=== PATIENT | female | born 1950 | race Caucasian/White ===

== ENCOUNTER 2017-02-10 21:54 | Inpatient (IN) | payer OTHER, MEDICARE ==
[~2017-02-10] VITALS: Ht 165.1 cm; Wt 85.2 kg
[2017-02-10 22:06] VITALS: BP 107/50; PULSE 82; RESP 16; TEMP 98.1; O2SAT 97
[2017-02-10] MEDS ORDERED: MORPHINE SULFATE 4 MG/ML INJ IV PUSH ONE (22:30)
--- NOTE | 2017-02-10 22:41 | PD ---
HPI Chief Complaint: Hip Injury Time Seen by Provider: 22:07 Travel History International Travel<30 days: No Contact w/Intl Traveler<30days: No Traveled to known affect area: No History of Present Illness HPI 66-year-old female was getting out of her wheelchair today when she suddenly felt a pop in her left hip and since then has been unable to stand up. She has been in excruciating pain with leg length discrepancy. She was brought in by EMS. Patient lives in a rehabilitation and had her left hip replacement revised one month ago. She has dislocated this hip in the past. She received morphine on route by EMS. She is still in significant distress. [facility] Past Medical History Narrative Medical List of her past medical, surgical, social and family history is reviewed from the nursing note. Arthritis: Yes (OSTEO) Diminished Hearing: No Thyroid Disease: Yes Tetanus Vaccination: Unknown Influenza Vaccination: No Social History Alcohol Use: No Tobacco Use: No Substance Use: No Allergies-Medications (Allergen,Severity, Reaction): Coded Allergies: No Known Allergies (Unverified , 02/10/17) Comments No known drug allergies. Reported Meds & Prescriptions Reported Meds & Active Scripts Active Reported Levothyroxine (Levothyroxine Sodium) 75 Mcg Tab 75 Mcg PO DAILY Narrative Medication Awaiting for the nurse to put the med reconciliation. Review of Systems Except as stated in HPI: all other systems reviewed are Neg Physical Exam Narrative GENERAL: Awake, alert, anxious, moderate distress SKIN: Focused skin assessment warm/dry. HEAD: Atraumatic. Normocephalic. EYES: Pupils equal and round. No scleral icterus. No injection or drainage. ENT: No nasal bleeding or discharge. Mucous membranes pink and moist. NECK: Trachea midline. No JVD. CARDIOVASCULAR: Regular rate and rhythm. No murmur appreciated. RESPIRATORY: No accessory muscle use. Clear to auscultation. Breath sounds equal bilaterally. GASTROINTESTINAL: Abdomen soft, non-tender, nondistended. Hepatic and splenic margins not palpable. MUSCULOSKELETAL: Left leg internally rotated and shortened. No clubbing. No cyanosis. No edema. NEUROLOGICAL: Awake and alert. No obvious cranial nerve deficits. Motor grossly within normal limits. Normal speech. PSYCHIATRIC: Appropriate mood and affect; insight and judgment normal. Data Data Last Documented VS Vital Signs Date Time Temp Pulse Resp B/P (MAP) Pulse Ox O2 Delivery O2 Flow Rate FiO2 02/10/17 23:40 74 16 113/55 (74) 100 Room Air 02/10/17 22:06 98.1 Orders Orders Morphine Inj (Morphine Inj) (02/10/17 22:30) Hip, Ap Only W Ap Pelvis (02/10/17 ) Propofol 200 Mg/20 Ml Inj (Diprivan 200 (02/10/17 23:00) Femur (Ap & Lat/2vws) (02/10/17 ) MDM Medical Decision Making Medical Screen Exam Complete: Yes Emergency Medical Condition: Yes Medical Record Reviewed: Yes Differential Diagnosis Hip dislocation, hip fracture Narrative Course 10:41 PM awaiting for the x-ray to be done and resulted. Patient was medicated for pain 11:39 PM x-ray was suggestive of dislocation. I tried to reduce the hip under procedural sedation. Please refer to my procedure note. The reduction was unsuccessful. I just discussed the case with Dr. Boone from orthopedics and she wants the patient admitted under medical service and nothing by mouth. She' ll try to do a closed reduction and if unsuccessful we will do an open reduction. I've explained all this to the patient's and family. I've answered all the questions to the best of my ability. Procedures Procedure Narrative After the risks and benefits were discussed the following procedure was performed: MODERATE SEDATION: The patient was placed on a cardiac/vascular sonographer and pulse oximetry. An ambu bag and suction was immediately available at bedside. The patient was monitored by the nurse. Oxygen saturation , heart rate and blood pressure were monitored. Procedural sedation was acheived using IV propofol 240 mg. The patient was observed until awake and alert. Procedural Sedation time in attendance was 25 minutes. Left hip reduction: This was tried to be reduced under sedation by thi Coe's method. In spite of multiple attempts under adequate sedation this was unsuccessful. EKG Prior to Arrival: No Physician Communication Physician Communication Dr. Boone Diagnosis Primary Impression: Hip dislocation, left Qualified Codes: S73.005A - Unspecified dislocation of left hip, initial encounter Additional Impression: unsuccessful reduction Admitting Information Admitting Physician Requests: Observation Alberto Evans MD Feb 10, 2017 22:41
[2017-02-10] MEDS ORDERED: PROPOFOL 200 MG/20 ML AMP IV ONE (23:00)
--- NOTE | 2017-02-10 23:07 | RADRPT ---
EXAM DATE/TIME: 02/10/2017 22:24 [facility] COMPARISON: No previous studies available for comparison. INDICATIONS : Left hip pain. MEDICAL HISTORY : Previous left hip fracture SURGICAL HISTORY : Left total hip replacement ENCOUNTER: Initial ACUITY: 1 day PAIN SCORE: 10/10 LOCATION: Left pelvis FINDINGS: AP view of the left hip was obtained as well as an AP view of the pelvis. The patient is status post left hip arthroplasty and apparent revision with longstem type device and multiple cerclage wires juana rounding the proximal femur. There is dislocation of the femoral component superiorly and lateral to the acetabular component approximately 2-3 cm. There is no definite acute fracture. There is mild ost eopenia. Pubic rami are intact. There is a stimulator device projected over the left side of the sacr um. CONCLUSION: 1. Dislocation of the hip prosthesis with no definite fracture. 2. Osteopenia and stimulator device in place. James An MD on February 10, 2017 at 23:03 Board Certified Radiologist. This report was verified electronically.
[2017-02-10 23:11] VITALS: O2SAT 98
[2017-02-10 23:40] VITALS: BP 113/55; PULSE 74; RESP 16; O2SAT 100
[2017-02-10] MEDS ORDERED: LEVO75TA3 PO (23:41)
[2017-02-10] MEDS ORDERED: NALOXONE HCL 0.4 MG/ML AMP IV PUSH PRN (23:45)
[2017-02-10] MEDS ORDERED: SODIUM CHLORIDE 0.9% FLUSH 10 ML FLUSH IV FLUSH PRN (23:45)
[2017-02-11] VITALS (9 sets, daily range): BP systolic 100–120; BP diastolic 48–72; PULSE 71–86; RESP 18–20; TEMP 96.4–97.7; O2SAT 96–100
--- NOTE | 2017-02-11 00:51 | RADRPT ---
EXAM DATE/TIME: 02/11/2017 00:34 [facility] COMPARISON: HIP LEFT AP ONLY W AP PELVIS, February 10, 2017, 22:24. INDICATIONS : Hip pain, fall. Post dislocation of hip. MEDICAL HISTORY : None. SURGICAL HISTORY : None. ENCOUNTER: Initial ACUITY: 1 day PAIN SCORE: 10/10 LOCATION: Left hip FINDINGS: AP and lateral views left femur were obtained and again demonstrate the patient is status post left h ip arthroplasty with apparent revision arthroplasty device with long stem and cerclage wires. There i s dislocation of the femoral component from the acetabular component without change. The femur is int act distally with no evidence of fracture. Degenerative changes are noted in the patellofemoral joint . There is diffuse osteopenia. CONCLUSION: 1. The known left hip dislocation is again identified. 2. Status post left hip arthroplasty. 3. No evidence of fracture. 4. Degenerative change in the patellofemoral joint. 5. Diffuse osteopenia. James An MD on February 11, 2017 at 0:48 Board Certified Radiologist. This report was verified electronically.
[2017-02-11] MEDS ORDERED: POVIDONE IODINE 5% (ANTISEPSIS KIT) 4 APPLICATIONS EACH NARE PRN (01:45)
[2017-02-11] MEDS ORDERED: LACTATED RINGER'S 1000 ML IV PRN (01:45)
[2017-02-11] MEDS ORDERED: CHLORHEXIDINE GLUCONATE 2 % 1 PACK (2 CLOTHS) TOPICAL PRN (01:45)
[2017-02-11] MEDS ORDERED: SODIUM CHLORID 0.9% 500 ML IV PRN (01:45)
[2017-02-11] MEDS ORDERED: MORPHINE SULFATE 4 MG/ML INJ IV PUSH PRN ×2 (02:15→08:15)
[2017-02-11 05:35] LABS: AUTOMATED NEUTROPHIL # 4.1 TH/MM3 (1.8-7.7); BASOPHIL % 0.6 % (0.0-2.0); EOSINOPHIL # 0.1 TH/MM3 (0-0.4); HEMATOCRIT 27.4 % (35.0-46.0); HEMO FLAGS DIFF FINAL; LYMPH % 19.3 % (9.0-44.0); LYMPHOCYTE # 1.2 TH/MM3 (1.0-4.8); MEAN CELL VOLUME 92.4 FL (80.0-100.0); MEAN CORPUSCULAR HEMOGLOBIN 31.2 PG (27.0-34.0); MEAN CORPUSCULAR HGB CONC 33.7 % (32.0-36.0); MONO % 14.2 % (0.0-8.0); NEUT % 64.9 % (16.0-70.0); PLATELET COUNT 342 TH/MM3 (150-450); RED BLOOD COUNT 2.96 MIL/MM3 (4.00-5.30); RED CELL DISTRIBUTION WIDTH 14.2 % (11.6-17.2); WHITE BLOOD COUNT 6.3 TH/MM3 (4.0-11.0)
[2017-02-11] MEDS ORDERED: ACETAMINOPHEN 1000 MG/100 ML 0 ML IV ONE (06:34)
--- NOTE | 2017-02-11 08:12 | PD.OP ---
cc: Jack Fiore MD Operative Report Date of Surgery: Feb 11, 2017 Preoperative Diagnosis: Dislocated left total hip arthroscopy Postoperative Diagnosis: Procedure: Closed reduction of left hip with manipulation under anesthesia Surgeon: Jack Fiore Vault Installer(s): ORLY Wellington PA-C Operation and Findings: Abbi presented to the emergency room yesterday with a left hip dislocation. She underwent left total hip arthroplasty and new [place] by Dr. Aiken 3 and half weeks ago. She was getting off the toilet when her hip popped out of place. She presented emergency room x-rays revealed hip dislocation. Closed reduction attempts in the emergency room were unsuccessful. Informed consent was obtained and operative site was marked. She is brought to operating. His given IV sedation and LMA. Timeout procedure was performed. Procedure began with visualization of the hip under fluoroscopy. Traction was now applied. The hip was gently manipulated. The hip was distracted and then reduced. Multiplanar fluoroscopy confirmed reduction of the hip. Patient was placed into a knee immobilizer. She is also placed her abduction pillow. She was awakened and transferred to recovery in stable condition. She will need to follow up with her surgeon Dr. Aiken after discharge. Jack Fiore MD Feb 11, 2017 08:12
[2017-02-11] MEDS ORDERED: ONDANSETRON HCL 4 MG/2 ML VIAL IVP PRN (08:15)
[2017-02-11] MEDS ORDERED: ACETAMINOPHEN/HYDROcodone 325 MG/7.5 MG TAB PO PRN (08:15)
[2017-02-11] MEDS ORDERED: NALOXONE HCL 0.4 MG/ML AMP IV PUSH PRN (08:15)
[2017-02-11] MEDS ORDERED: DO NOT ADM ANY ANTICOAGULANT DRUGS PRN (08:15)
--- NOTE | 2017-02-11 08:54 | MB ---
cc: SANDY MALONE DATE OF CONSULTATION: 02/11/2017 REASON FOR CONSULTATION Left total hip arthroplasty dislocation. HISTORY OF PRESENT ILLNESS Abbi is a 66-year-old female who had a complex left total hip arthroplasty done at [facility] in [place] 3-1/2 weeks ago. She is currently in a rehab center. She was getting off the toilet when she had immediate left hip pain. She felt a pop. She was unable to stand or ambulate. She presented to the emergency room where x-rays revealed a dislocation of her left total hip arthroplasty. She underwent attempted closed reduction in the emergency department. This was an unsuccessful attempt. The patient is currently awake and alert on the orthopedic floor. Her only complaint is her left hip. She states that she has been feeling popping in her hip ever since her surgery 3-1/2 weeks ago. PAST MEDICAL HISTORY ILLNESSES 1. Osteoarthritis. 2. Hypothyroidism. ALLERGIES No known drug allergies. MEDICATIONS Levothyroxine. SOCIAL HISTORY The patient denies alcohol, tobacco or drug use. She is currently living in a rehabilitation center secondary to her hip surgery. REVIEW OF SYSTEMS The patient denies headache, visual changes, neck pain, chest pain, shortness of breath, abdominal pain, nausea, vomiting, recent weight loss, numbness or tingling of extremities. She complains of left hip pain. Pain is worse with movement. PHYSICAL EXAMINATION GENERAL: The patient is a well-developed, well-nourished 66-year-old female in no acute distress. She is awake and alert. She is alert and oriented x3. VITAL SIGNS: Temperature 97.6, pulse 86, respirations 20, blood pressure 101/48. O2 sat is 97% on three liters nasal cannula. HEAD: The patient is normocephalic. Pupils are equal. NECK: Soft, nontender. Trachea is midline. ABDOMEN: Soft, nontender, nondistended. EXTREMITIES: Examination of bilateral upper extremities reveals no significant pain with shoulder, elbow or wrist motion. She has good capillary refill in all fingers. Skin is intact to both hands. Radial pulses are palpable. Examination of right leg reveals no pain with hip, knee or ankle motion. Skin is intact. Dorsalis pedis pulse is palpable. Sensation is intact. Examination of left leg reveals the leg is shortened and internally rotated. She has pain with any hip motion. She has minimal pain around her knee, tibia or ankle. Skin is intact. Sensation is intact to the left foot. Dorsalis pedis pulse is palpable. Surgical incision is well-healed on the left hip. X-RAYS X-rays of left hip were reviewed. X-rays reveal a dislocated left total hip arthroplasty. IMPRESSION 1. Dislocated left total hip arthroplasty. 2. Hypothyroidism. PLAN The treatment options were discussed with the patient. At this point I would recommend attempted closed reduction with manipulation under anesthesia. I explained to her that if I am unable to get closed reduction of the hip she will likely need an open reduction. If the patient does need an open reduction she may need to return to [place] to see her primary surgeon, Dr. Rich, as he did a recent total hip surgery on her approximately 3 weeks ago. The risks of surgery include bleeding, infection, injuries to arteries, nerves and blood vessels, fracture of the femur, failure to obtain reduction, as well as medical complications associated with anesthesia. All questions were answered. I will plan on surgery today. MD LAXMI Ortiz/BENJI /8:12 AM /8:35 AM
[2017-02-11] MEDS: ACETAMINOPHEN/HYDROcodone 325 MG/10 MG TAB PO PRN ×3 (09:27→23:03)
--- NOTE | 2017-02-11 10:09 | EKG ---
Date Performed: 02/11/2017 Time Performed: 06:01:20 PTAGE: 66 years EKG: Sinus rhythm Normal ECG NO PREVIOUS TRACING DOCTOR: Oliver Huber Interpretating Date/Time 02/11/2017 10:07:05
--- NOTE | 2017-02-11 10:12 | HHI.HP ---
[facility] Shobha Peterson D.O. Admission Diagnosis hip dislocation, unsuccessful reduction Diagnoses: Travel History International Travel<30 Days: No Contact w/Intl Traveler <30 Da: No Traveled to Known Affected Are: No History of Present Illness Pt is a 66 yr old female w pmhx of hypothyroidism was admitted because of left hip pain. Pt states that last night when she got up to use the restroom she felt her hip "lock" and then experienced excruciating pain. Pt states that she thought she had broken it. She was trying to get up and pull down her pants when it happened, this she must have twisted her hip. Currently her pain is a 7/ 10 and would like some pain meds. she just got out of the OR for closed reduction of the left hip w manipulation under anesthesia. 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 for which she takes two dose of miralax at bedtime and also has urinary incontinence Review of Systems Except as stated in HPI: all other systems reviewed are Neg Past Family Social History Past Medical History urinary incontinence- has device which is now broken/malfunctioning opioid induced constipation hypothyroidism Past Surgical History prior left hip fx then left hip replacement - as isis and part of the femur broke a month ago closed reduction of left hip w manipulation under anesthesia total right knee arthroplasty Allergies: Coded Allergies: No Known Allergies (Unverified , 02/10/17) Family History both parents: healthy, no medical problems reported by patient Social History denies any smoking hx, alcohol use or illegal drug use Physical Exam Vital Signs Vital Signs Date Time Temp Pulse Resp B/P (MAP) Pulse Ox O2 Delivery O2 Flow Rate FiO2 02/11/17 08:45 98.1 78 16 115/54 (74) 98 Room Air 02/11/17 08:40 Room Air 02/11/17 08:30 75 12 103/52 (69) 99 Nasal Cannula 2 02/11/17 08:15 79 15 118/58 (78) 100 Nasal Cannula 2 02/11/17 08:14 98.2 81 15 114/57 (76) 100 Nasal Cannula 2 02/11/17 04:00 97.6 86 20 101/48 (65) 97 02/11/17 03:22 86 02/11/17 01:22 02/11/17 01:00 97.7 71 20 116/56 (76) 100 02/10/17 23:40 74 16 113/55 (74) 100 Room Air 02/10/17 23:11 98 3.00 02/10/17 23:11 98 Nasal Cannula 3.00 02/10/17 23:11 98 02/10/17 22:06 98.1 82 16 107/50 (69) 97 Physical Exam GENERAL: pleasant female, laying in bed SKIN: ice pack on left hip. HEAD: Atraumatic. Normocephalic. EYES: Pupils equal round and reactive. Extraocular motions intact. No scleral icterus. No injection or drainage. ENT: Nose without drainage. Airway patent. NECK: Trachea midline. CARDIOVASCULAR: Regular rate and rhythm without murmurs RESPIRATORY: Clear to auscultation. Breath sounds equal bilaterally. No wheezes . GASTROINTESTINAL: Abdomen soft, non-tender, nondistended. No palpable masses. MUSCULOSKELETAL: Extremities without edema. able to wiggles toes, sensation intact NEUROLOGICAL: Awake and alert. Cranial nerves II through XII intact. Normal speech. Laboratory Laboratory Tests Test 02/11/17 05:21 White Blood Count 6.3 Red Blood Count 2.96 Hemoglobin 9.2 Hematocrit 27.4 Mean Corpuscular Volume 92.4 Mean Corpuscular Hemoglobin 31.2 Mean Corpuscular Hemoglobin Concent 33.7 Red Cell Distribution Width 14.2 Platelet Count 342 Mean Platelet Volume 6.8 Neutrophils (%) (Auto) 64.9 Lymphocytes (%) (Auto) 19.3 Monocytes (%) (Auto) 14.2 Eosinophils (%) (Auto) 1.0 Basophils (%) (Auto) 0.6 Neutrophils # (Auto) 4.1 Lymphocytes # (Auto) 1.2 Monocytes # (Auto) 0.9 Eosinophils # (Auto) 0.1 Basophils # (Auto) 0.0 CBC Comment DIFF FINAL Differential Comment Result Diagram: 02/11/17 0521 Imaging Last Impressions Hip and Pelvis X-Ray 02/10/17 0000 Signed Impressions: Service Date/Time: Friday, February 10, 2017 22:24 - CONCLUSION: 1. Dislocation of the hip prosthesis with no definite fracture. 2. Osteopenia and stimulator device in place. James An MD Femur X-Ray 02/10/17 0000 Signed Impressions: Service Date/Time: Saturday, February 11, 2017 00:34 - CONCLUSION: 1. The known left hip dislocation is again identified. 2. Status post left hip arthroplasty. 3. No evidence of fracture. 4. Degenerative change in the patellofemoral joint. 5. Diffuse osteopenia. James An MD Caprini VTE Risk Assessment Caprini VTE Risk Assessment: Mod/High Risk (score >= 2) Caprini Risk Assessment Model Point Value = 1 Point Value = 2 Point Value = 3 Point Value = 5 Age 41-60 Minor surgery BMI > 25 kg/m2 Swollen legs Varicose veins or History of unexplained or recurrent spontaneous Oral contraceptives or hormone replacement Sepsis (< 1 month) Serious lung disease, including pneumonia (< 1 month) Abnormal pulmonary function Acute myocardial infarction Congestive heart failure (< 1 month) History of inflammatory bowel disease Medical patient at bed rest Age 61-74 Arthroscopic surgery Major open surgery (> 45 min) Laparoscopic surgery (> 45 min) Malignancy Confined to bed (> 72 hours) Immobilizing plaster cast Central venous access Age >= 75 History of VTE Family history of VTE Factor V Leiden Prothrombin [id number] Lupus anticoagulant Anticardiolipin antibodies Elevated serum homocysteine Heparin-induced thrombocytopenia Other congenital or acquired thrombophilia Stroke (< 1 month) Elective arthroplasty Hip, pelvis, or leg fracture Acute spinal cord injury (< 1 month) Prophylaxis Regimen Total Risk Factor Score Risk Level Prophylaxis Regimen 0-1 Low Early ambulation 2 Moderate Order ONE of the following: *Sequential Compression Device (SCD) *Heparin 5000 units SQ BID 3-4 Higher Order ONE of the following medications: *Heparin 5000 units SQ TID *Enoxaparin/Lovenox 40 mg SQ daily (WT < 150 kg, CrCl > 30 mL/min) *Enoxaparin/Lovenox 30 mg SQ daily (WT < 150 kg, CrCl > 10-29 mL/min) *Enoxaparin/Lovenox 30 mg SQ BID (WT < 150 kg, CrCl > 30 mL/min) AND/OR *Sequential Compression Device (SCD) 5 or more Highest Order ONE of the following medications: *Heparin 5000 units SQ TID (Preferred with Epidurals) *Enoxaparin/Lovenox 40 mg SQ daily (WT < 150 kg, CrCl > 30 mL/min) *Enoxaparin/Lovenox 30 mg SQ daily (WT < 150 kg, CrCl > 10-29 mL/min) *Enoxaparin/Lovenox 30 mg SQ BID (WT < 150 kg, CrCl > 30 mL/min) AND *Sequential Compression Device (SCD) Assessment and Plan Assessment and Plan left hip dislocation s/p closed reduction of the left hip w manipulation under anesthesia pod 0. pain control, dvt proph and rehab per ortho. anemia: hb 9.2. monitor, pt did have sx a month ago as she had broken her left hip at the time. pt is asymptomatic. hypothyroidism: resumed home synthroid opiod induced constipation: takes linzess at the rehab but doesn't remember dose. RN to update med rec and I'll resume then. pt states she takes two doses of miralax at bedtime for this. DVT proph: on lovenox per ortho Code Status full Discussed Condition With patient and Latanya Herndon MD Feb 11, 2017 10:12
[2017-02-11] MEDS: SODIUM CHLORIDE 0.9% FLUSH 10 ML FLUSH IV FLUSH SCH ×2 (10:40→21:00)
--- NOTE | 2017-02-11 11:29 | PD.ORT.PN ---
Subjective Subjective Remarks Previous hip replacement [address] Aiken. Hip dislocation Objective Vitals Vital Signs Date Time Temp Pulse Resp B/P (MAP) Pulse Ox O2 Delivery O2 Flow Rate FiO2 02/11/17 10:27 18 02/11/17 09:00 96.4 78 19 100/53 (69) 100 02/11/17 08:45 98.1 78 16 115/54 (74) 98 Room Air 02/11/17 08:40 Room Air 02/11/17 08:30 75 12 103/52 (69) 99 Nasal Cannula 2 02/11/17 08:15 79 15 118/58 (78) 100 Nasal Cannula 2 02/11/17 08:14 98.2 81 15 114/57 (76) 100 Nasal Cannula 2 02/11/17 04:00 97.6 86 20 101/48 (65) 97 02/11/17 03:22 86 02/11/17 01:22 02/11/17 01:00 97.7 71 20 116/56 (76) 100 02/10/17 23:40 74 16 113/55 (74) 100 Room Air 02/10/17 23:11 98 3.00 02/10/17 23:11 98 Nasal Cannula 3.00 02/10/17 23:11 98 02/10/17 22:06 98.1 82 16 107/50 (69) 97 I/O 02/10/17 02/10/17 02/10/17 02/11/17 02/11/17 02/11/17 07:00 15:00 23:00 07:00 15:00 23:00 Intake Total 400 ml Balance 400 ml Intake Oral 0 ml IV Total 0 ml Other 400 ml # Voids 0 Result Diagram: 02/11/17 0521 Imaging Last 72 hours Impressions Hip and Pelvis X-Ray 02/10/17 0000 Signed Impressions: Service Date/Time: Friday, February 10, 2017 22:24 - CONCLUSION: 1. Dislocation of the hip prosthesis with no definite fracture. 2. Osteopenia and stimulator device in place. James An MD Femur X-Ray 02/10/17 0000 Signed Impressions: Service Date/Time: Saturday, February 11, 2017 00:34 - CONCLUSION: 1. The known left hip dislocation is again identified. 2. Status post left hip arthroplasty. 3. No evidence of fracture. 4. Degenerative change in the patellofemoral joint. 5. Diffuse osteopenia. James An MD Objective Remarks Left hip dislocation. Shortening to left lower extremity. Surgical incisions are healed from previous surgery. Intact sensation distally. Active dorsiflexion plantar flexion of foot Assessment & Plan Assessment and Plan Left hip dislocation status post left total hip arthroplasty with revision by Dr. Aiken 3 weeks ago Surgery today for closed reduction of left hip. After surgery she will continue to follow-up with Dr. Aiken. James Morgan Jr. Feb 11, 2017 11:29
--- NOTE | 2017-02-11 12:59 | RADRPT ---
EXAM DATE/TIME: 02/11/2017 08:00 [facility] COMPARISON: No previous studies available for comparison. INDICATIONS : Closed reduction of left hip. MEDICAL HISTORY : None. SURGICAL HISTORY : Left total hip replacement. ENCOUNTER: Initial ACUITY: 1 day PAIN SCORE: Non-responsive. LOCATION: Left Hip FINDINGS: 2 views of the left hip demonstrates successful reduction of a dislocated hip prosthesis. The femoral component is now well-seated within the acetabulum. CONCLUSION: Successful closed reduction of a dislocated left hip replacement. Dmitriy Huitron MD on February 11, 2017 at 12:56 Board Certified Radiologist. This report was verified electronically.
[2017-02-11] MEDS: ENOXAPARIN SODIUM 30 MG/0.3 ML SYRINGE SQ SCH (21:59)
[2017-02-11] MEDS: POLYETHYLENE GLYCOL 17 GM PKG PO SCH (22:03)
[2017-02-12] VITALS (7 sets, daily range): BP systolic 97–115; BP diastolic 42–60; PULSE 70–79; RESP 18–20; TEMP 97.7–99.6; O2SAT 96–98
[2017-02-12] MEDS ORDERED: OMEP40CA2 PO (05:27)
[2017-02-12] MEDS ORDERED: MIRA3350 PO (05:27)
[2017-02-12] MEDS ORDERED: LEVO75TA3 PO (05:27)
[2017-02-12] MEDS ORDERED: FERR325T18 PO ×2 (05:27)
[2017-02-12] MEDS ORDERED: LINA145C PO (05:27)
[2017-02-12] MEDS ORDERED: TYLE325T PO (05:27)
[2017-02-12] MEDS ORDERED: MULT-65 PO ×2 (05:27)
[2017-02-12] MEDS ORDERED: PERC10TA27 PO ×2 (05:27→13:51)
[2017-02-12] MEDS ORDERED: ENOX40IN SQ (05:27)
[2017-02-12] MEDS ORDERED: CITA10TA4 PO (05:27)
--- NOTE | 2017-02-12 06:50 | PD.ORT.PN ---
Subjective Subjective Remarks POD 1 s/p closed reduction of left total hip doing well. pain controlled. out of bed with walker to chair Objective Vitals Vital Signs Date Time Temp Pulse Resp B/P (MAP) Pulse Ox O2 Delivery O2 Flow Rate FiO2 02/12/17 04:00 97.9 79 20 104/59 (74) 97 02/12/17 00:00 99.6 78 18 97/47 (64) 96 02/11/17 21:20 97 02/11/17 19:50 96.8 80 18 115/58 (77) 97 02/11/17 17:18 18 02/11/17 16:00 97.3 72 19 120/72 (88) 100 02/11/17 11:58 97.0 77 20 110/60 (77) 100 02/11/17 11:31 96 21 02/11/17 09:00 96.4 78 19 100/53 (69) 100 02/11/17 08:45 98.1 78 16 115/54 (74) 98 Room Air 02/11/17 08:40 Room Air 02/11/17 08:30 75 12 103/52 (69) 99 Nasal Cannula 2 02/11/17 08:15 79 15 118/58 (78) 100 Nasal Cannula 2 02/11/17 08:14 98.2 81 15 114/57 (76) 100 Nasal Cannula 2 I/O 02/11/17 02/11/17 02/11/17 02/12/17 02/12/17 02/12/17 07:00 15:00 23:00 07:00 15:00 23:00 Intake Total 850 ml 360 ml 320 ml Output Total 500 ml Balance 850 ml 360 ml -180 ml Intake Oral 450 ml 360 ml 320 ml IV Total 0 ml Other 400 ml Output Urine Total 500 ml # Voids 1 1 # Bowel Movements 1 0 0 Result Diagram: 02/11/17 0521 Imaging Last 72 hours Impressions Hip and Pelvis X-Ray 02/10/17 0000 Signed Impressions: Service Date/Time: Friday, February 10, 2017 22:24 - CONCLUSION: 1. Dislocation of the hip prosthesis with no definite fracture. 2. Osteopenia and stimulator device in place. James An MD Femur X-Ray 02/10/17 0000 Signed Impressions: Service Date/Time: Saturday, February 11, 2017 00:34 - CONCLUSION: 1. The known left hip dislocation is again identified. 2. Status post left hip arthroplasty. 3. No evidence of fracture. 4. Degenerative change in the patellofemoral joint. 5. Diffuse osteopenia. James An MD Objective Remarks LLE: +abduction pillow and knee brace. NVI Assessment & Plan Assessment and Plan 1) Left hip dislocation status post left total hip arthroplasty with revision by Dr. Aiken 3 weeks ago with closed reduction in OR - POD 1 -WBAT -abduction pillow while in bed -CKS at all times -posterior hip precautions -ortho cleared for DC to SNF -f/u with Herber Peña/Food Clerk PA Feb 12, 2017 06:50
[2017-02-12] MEDS: LEVOTHYROXINE SODIUM 75 MCG TAB PO SCH (07:13)
[2017-02-12] MEDS: SODIUM CHLORIDE 0.9% FLUSH 10 ML FLUSH IV FLUSH SCH ×2 (08:12→21:09)
[2017-02-12] MEDS: ACETAMINOPHEN/HYDROcodone 325 MG/10 MG TAB PO PRN ×3 (08:12→15:21)
[2017-02-12 08:24] LABS: HEMATOCRIT 26.7 % (35.0-46.0); REVIEW FLAG FINAL
[2017-02-12] MEDS: POLYETHYLENE GLYCOL 17 GM PKG PO SCH (21:00)
[2017-02-12] MEDS: DOCUSATE SODIUM 100 MG CAP PO SCH (21:00)
[2017-02-12] MEDS: ENOXAPARIN SODIUM 30 MG/0.3 ML SYRINGE SQ SCH (21:10)
[2017-02-13] VITALS: BP 121/56; PULSE 73; RESP 16; TEMP 97.1; O2SAT 98
[2017-02-13] MEDS: ACETAMINOPHEN/HYDROcodone 325 MG/10 MG TAB PO PRN ×3 (00:10→12:48)
[2017-02-13 00:44] VITALS: PULSE 66
[2017-02-13 03:57] VITALS: PULSE 64
[2017-02-13 04:00] VITALS: BP 108/58; PULSE 61; RESP 18; TEMP 97.1; O2SAT 97
[2017-02-13] MEDS: LEVOTHYROXINE SODIUM 75 MCG TAB PO SCH (06:10)
--- NOTE | 2017-02-13 06:50 | PD.ORT.PN ---
Subjective Subjective Remarks Resting comfortably with no new complaints Objective Vitals Vital Signs Date Time Temp Pulse Resp B/P (MAP) Pulse Ox O2 Delivery O2 Flow Rate FiO2 02/13/17 04:00 97.1 61 18 108/58 (75) 97 02/13/17 03:57 64 02/13/17 00:47 17 02/13/17 00:44 66 02/13/17 00:00 97.1 73 16 121/56 (77) 98 02/12/17 23:40 Room Air 02/12/17 21:12 21 02/12/17 20:59 98.1 74 18 108/48 (68) 96 02/12/17 20:00 76 02/12/17 16:00 97.7 71 18 115/60 (78) 98 02/12/17 12:00 98.0 72 18 110/54 (72) 97 02/12/17 08:00 97.7 70 19 102/42 (62) 98 I/O 02/12/17 02/12/17 02/12/17 02/13/17 02/13/17 02/13/17 07:00 15:00 23:00 07:00 15:00 23:00 Intake Total 320 ml 720 ml 480 ml Output Total 500 ml Balance -180 ml 720 ml 480 ml Intake Oral 320 ml 720 ml 480 ml Output Urine Total 500 ml # Voids 4 4 # Bowel Movements 0 2 3 Result Diagram: 02/12/17 0759 Imaging Last 72 hours Impressions Hip and Pelvis X-Ray 02/10/17 0000 Signed Impressions: Service Date/Time: Friday, February 10, 2017 22:24 - CONCLUSION: 1. Dislocation of the hip prosthesis with no definite fracture. 2. Osteopenia and stimulator device in place. James An MD Femur X-Ray 02/10/17 0000 Signed Impressions: Service Date/Time: Saturday, February 11, 2017 00:34 - CONCLUSION: 1. The known left hip dislocation is again identified. 2. Status post left hip arthroplasty. 3. No evidence of fracture. 4. Degenerative change in the patellofemoral joint. 5. Diffuse osteopenia. James An MD Objective Remarks Left lower extremity: Abduction pillow in knee immobilizer in place. Distally intact sensation good capillary refills. Leg lengths appeared near equal Assessment & Plan Assessment and Plan 1) Left hip dislocation status post left total hip arthroplasty with revision by Dr. Aiken 3 weeks ago with closed reduction in OR - POD 2 -WBAT -abduction pillow while in bed -CKS at all times -Strict posterior hip precautions -ortho cleared for DC to SNF -f/u with James Muro Jr. Feb 13, 2017 06:50
[2017-02-13 08:00] VITALS: BP 108/43; PULSE 70; RESP 18; TEMP 97.6; O2SAT 98
--- NOTE | 2017-02-13 08:14 | HHI.DS ---
Discharge Summary Admission Date Feb 10, 2017 at 11:47 pm Discharge Date: Feb 12, 2017 Admitting Diagnosis hip dislocation, unsuccessful reduction (1) Hip dislocation, left ICD Code: S73.005A - Unspecified dislocation of left hip, initial encounter Status: Acute Procedures Closed reduction. Brief History - From Admission Pt is a 66 yr old female w pmhx of hypothyroidism was admitted because of left hip pain. Pt states that last night when she got up to use the restroom she felt her hip "lock" and then experienced excruciating pain. Pt states that she thought she had broken it. She was trying to get up and pull down her pants when it happened, this she must have twisted her hip. Currently her pain is a 7/ 10 and would like some pain meds. she just got out of the OR for closed reduction of the left hip w manipulation under anesthesia. 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 for which she takes two dose of miralax at bedtime and also has urinary incontinence CBC/BMP: 02/12/17 0759 Significant Findings Laboratory Tests Test 02/11/17 05:21 02/12/17 07:59 Red Blood Count 2.96 MIL/MM3 (4.00-5.30) Hemoglobin 9.2 GM/DL (11.6-15.3) 8.8 GM/DL (11.6-15.3) Hematocrit 27.4 % (35.0-46.0) 26.7 % (35.0-46.0) Mean Platelet Volume 6.8 FL (7.0-11.0) Monocytes (%) (Auto) 14.2 % (0.0-8.0) Imaging Last Impressions Hip X-Ray 02/11/17 0000 Signed Impressions: Service Date/Time: Saturday, February 11, 2017 08:00 - CONCLUSION: Successful closed reduction of a dislocated left hip replacement. Dmitriy Huitron MD Hip and Pelvis X-Ray 02/10/17 0000 Signed Impressions: Service Date/Time: Friday, February 10, 2017 22:24 - CONCLUSION: 1. Dislocation of the hip prosthesis with no definite fracture. 2. Osteopenia and stimulator device in place. James An MD Femur X-Ray 02/10/17 0000 Signed Impressions: Service Date/Time: Saturday, February 11, 2017 00:34 - CONCLUSION: 1. The known left hip dislocation is again identified. 2. Status post left hip arthroplasty. 3. No evidence of fracture. 4. Degenerative change in the patellofemoral joint. 5. Diffuse osteopenia. James An MD PE at Discharge GENERAL: Alert, Oriented x 3, NAD. SKIN: Warm and dry. HEAD: Normocephalic. EYES: No scleral icterus. No injection or drainage. NECK: Supple, trachea midline. No JVD or lymphadenopathy. CARDIOVASCULAR: Regular rate and rhythm without murmurs, gallops, or rubs. RESPIRATORY: Breath sounds equal bilaterally. No accessory muscle use. GASTROINTESTINAL: Abdomen soft, non-tender, nondistended. MUSCULOSKELETAL: No cyanosis, or edema. BACK: Nontender without obvious deformity. No CVA tenderness. Pt update on day of discharge Patient is doing well. No acute concerns. She would like to go to SNF. Hospital Course Left hip dislocation s/p closed reduction of the left hip w manipulation under anesthesia. pain control, dvt proph and rehab per ortho. - Orthopedic surgery cleared for discharge. Discussed with Orthopedic surgery PA. No anti-coagulation needed upon discharge. anemia: hb 9.2. monitor. pt is asymptomatic. hypothyroidism: resumed home synthroid opiod induced constipation: Continue linzess at the rehab. Full code. Pt Condition on Discharge: Good Discharge Disposition: Discharge to SNF Discharge Time: <= 30 minutes Discharge Instructions DIET: Follow Instructions for: As Tolerated, No Restrictions Activities you can perform: Regular-No Restrictions Follow up Referrals: Orthopedics - [address] Aiken Continued Medications: Acetaminophen (Tylenol) 325 Mg Tab 650 MG PO Q8HR PRN for PAIN, TAB 0 Refills Citalopram (Citalopram) 10 Mg Tab 10 MG PO DAILY for Depression Control, #30 TAB 0 Refills Ferrous Sulfate (Ferrous Sulfate) 325 Mg (65 Mg Iron) Tablet 325 MG PO BIDPC for ANEMIA, #60 TAB 0 Refills Levothyroxine (Levothyroxine) 75 Mcg Tab 75 MCG PO DAILY for Thyroid, #30 TAB 0 Refills Linaclotide (Linzess) 145 Mcg Cap 145 MCG PO DAILY, CAP 0 Refills Multiple Vitamin (Multi-Vitamin Daily) 1 Tab Tab 1 TAB PO DAILY for Nutritional Supplement, TAB 0 Refills Omeprazole (Omeprazole) 40 Mg Cap 40 MG PO DAILY, #30 CAP 0 Refills Oxycodone-Acetaminophen (Percocet) 10-325 mg Tab 1 TAB PO Q4H PRN for PAIN, #30 TAB 0 Refills (This prescription has been renewed ) Polyethylene Glycol 3350 Powder (Miralax Powder) 17 Gm Powd 17 GM PO DAILY for Constipation, #1 CAN 0 Refills Mix and dissolve one measuring cap-ful (17 grams) in water or juice. Discontinued Medications: Enoxaparin Inj (Enoxaparin Inj) 40 Mg/0.4 Ml Syr 40 MG SQ DAILY for Blood Clot Prevention, SYRINGE 0 Refills Ferrous Sulfate (Ferrous Sulfate) 325 Mg (65 Mg Iron) Tablet 325 MG PO BIDPC for Nutritional Supplement, #60 TAB 0 Refills Levothyroxine (Levothyroxine) 75 Mcg Tab 75 MCG PO DAILY for Thyroid, #30 TAB 0 Refills Multiple Vitamin (Multi-Vitamin Daily) 1 Tab Tab 1 TAB PO DAILY for ANEMIA, TAB 0 Refills Angela Maravilla DO Feb 13, 2017 8:14 am
--- NOTE | 2017-02-13 08:17 | HHI.PR ---
Subjective Remarks Delayed entry for 02/12/2017. Patient is currently doing well. No acute concerns. She would like to go to SNF. Objective Vitals Vital Signs Date Time Temp Pulse Resp B/P (MAP) Pulse Ox O2 Delivery O2 Flow Rate FiO2 02/13/17 04:00 97.1 61 18 108/58 (75) 97 02/13/17 03:57 64 02/13/17 00:47 17 02/13/17 00:44 66 02/13/17 00:00 97.1 73 16 121/56 (77) 98 02/12/17 23:40 Room Air 02/12/17 21:12 21 02/12/17 20:59 98.1 74 18 108/48 (68) 96 02/12/17 20:00 76 02/12/17 16:00 97.7 71 18 115/60 (78) 98 02/12/17 12:00 98.0 72 18 110/54 (72) 97 I/O 02/12/17 02/12/17 02/12/17 02/13/17 02/13/17 02/13/17 07:00 15:00 23:00 07:00 15:00 23:00 Intake Total 320 ml 720 ml 480 ml 240 ml Output Total 500 ml 150 ml Balance -180 ml 720 ml 480 ml 90 ml Intake Oral 320 ml 720 ml 480 ml 240 ml Output Urine Total 500 ml 150 ml # Voids 4 4 1 # Bowel Movements 0 2 3 1 Result Diagram: 02/12/17 0759 Imaging Last Impressions Hip X-Ray 02/11/17 0000 Signed Impressions: Service Date/Time: Saturday, February 11, 2017 08:00 - CONCLUSION: Successful closed reduction of a dislocated left hip replacement. Dmitriy Huitron MD Hip and Pelvis X-Ray 02/10/17 0000 Signed Impressions: Service Date/Time: Friday, February 10, 2017 22:24 - CONCLUSION: 1. Dislocation of the hip prosthesis with no definite fracture. 2. Osteopenia and stimulator device in place. James An MD Femur X-Ray 02/10/17 0000 Signed Impressions: Service Date/Time: Saturday, February 11, 2017 00:34 - CONCLUSION: 1. The known left hip dislocation is again identified. 2. Status post left hip arthroplasty. 3. No evidence of fracture. 4. Degenerative change in the patellofemoral joint. 5. Diffuse osteopenia. James An MD Objective Remarks GENERAL: Alert, Oriented x 3, NAD. SKIN: Warm and dry. HEAD: Normocephalic. EYES: No scleral icterus. No injection or drainage. NECK: Supple, trachea midline. No JVD or lymphadenopathy. CARDIOVASCULAR: Regular rate and rhythm without murmurs, gallops, or rubs. RESPIRATORY: Breath sounds equal bilaterally. No accessory muscle use. GASTROINTESTINAL: Abdomen soft, non-tender, nondistended. MUSCULOSKELETAL: No cyanosis, or edema. BACK: Nontender without obvious deformity. No CVA tenderness. Procedures Closed reduction. A/P Problem List: (1) Hip dislocation, left ICD Code: S73.005A - Unspecified dislocation of left hip, initial encounter Status: Acute Assessment and Plan Left hip dislocation s/p closed reduction of the left hip w manipulation under anesthesia. pain control, dvt proph and rehab per ortho. - Orthopedic surgery cleared for discharge. Discussed with Orthopedic surgery PA. No anti-coagulation needed upon discharge. anemia: hb 9.2. monitor, pt did have sx a month ago as she had broken her left hip at the time. pt is asymptomatic. hypothyroidism: resumed home synthroid opiod induced constipation: takes linzess at the rehab but doesn't remember dose. RN to update med rec and I'll resume then. pt states she takes two doses of miralax at bedtime for this. Full code. Discharge when SNF arrangements are made. Problem Qualifiers (1) Hip dislocation, left: Qualified Codes: S73.005A - Unspecified dislocation of left hip, initial encounter Angela Maravilla DO Feb 13, 2017 8:17 am
[2017-02-13] MEDS: DOCUSATE SODIUM 100 MG CAP PO SCH (09:00)
[2017-02-13] MEDS: SODIUM CHLORIDE 0.9% FLUSH 10 ML FLUSH IV FLUSH SCH (09:00)
[2017-02-13 12:00] VITALS: BP 113/40; PULSE 83; RESP 18; TEMP 97.4; O2SAT 95
== END 2017-02-13 13:01 | DRG 561 ==
LOC: NEPC 21:54 → NEDA 23:47 → OBSVTOIN 23:47 → N06B 02-11 01:02
PROVIDERS: ADMIT Hospitalist; ATTEND Hospitalist
PROC: 0SSBXZZ Reposition Left Hip Joint, External Approach (ICD-10-PCS; principal; 2017-02-11 07:41)
DX: T84.021A Dislocation of internal left hip prosthesis, initial encounter (principal); E03.9 Hypothyroidism, unspecified; Y79.2 Prosthetic and other implants, materials and accessory orthopedic devices associated with adverse incidents; M19.90 Unspecified osteoarthritis, unspecified site; D64.9 Anemia, unspecified; K59.03 Drug induced constipation; T40.2X5A Adverse effect of other opioids, initial encounter; R32 Unspecified urinary incontinence
CPT/HCPCS: 73501; 73502; 73552; 76000; 85014; 85018; 85025; 93005; J0131; J1650; J2270; J3010; L1830